=== PATIENT | male | born 1995 | race Caucasian/White ===

== ENCOUNTER 2024-07-22 20:28 | Emergency (ER) | payer SELFPAY ==
[2024-07-23] MEDS: Ibuprofen 600 MG Tab PO ONE (00:14)
[2024-07-23] MEDS: Acetaminophen 500 MG Tab PO ONE (00:15)
== END 2024-07-23 01:19 | disposition home or self-care (01) ==
LOC: MW.ED 20:28
DX: J10.1 Influenza due to other identified influenza virus with other respiratory manifestations (principal); E11.9 Type 2 diabetes mellitus without complications; Z79.4 Long term (current) use of insulin; Z79.84 Long term (current) use of oral hypoglycemic drugs; Z88.2 Allergy status to sulfonamides; Z88.0 Allergy status to penicillin
CPT/HCPCS: 82947; 87428; 87651; 99284; A9270